=== PATIENT | male | born 1985 | race Caucasian/White ===

== ENCOUNTER 2020-10-01 13:51 | Emergency (ER) | payer OTHER ==
[~2020-10-01] VITALS: Ht 165.1 cm; Wt 73.0 kg
[~2020-10-01 13:51] MED LIST: ASA81BEC PO; DIPHENHIST50 MG PO; PEPCID20 MG PO; PREDNISONE 20 M20 MG PO
[2020-10-01] MEDS ORDERED: NITROSTAT0.4 M1 SUBLING (14:04)
[2020-10-01 14:20] LABS: ABSOLUTE EOSINOPHILS 0.1 thou/uL (0.0-0.7); ABSOLUTE LYMPHOCYTES 1.5 thou/uL (0.8-5.3); ABSOLUTE MONOCYTES 0.4 thou/uL (0.0-1.2); ABSOLUTE NEUTROPHILS 4.3 thou/uL (1.6-8.1); BASOPHILS 0.6 %; EOSINOPHILS 1.3 %; HEMATOCRIT 44.3 % (42.0-52.0); HEMOGLOBIN 14.7 gm/dL (14.0-18.0); LYMPHOCYTES 23.4 %; MCH 30.1 pg (26.0-34.0); MCHC 33.3 g/dL (28.0-37.0); MCV 90.3 fL (80.0-100.0); MONOCYTES 6.4 %; MPV 9.4 fl. (7.2-11.1); NUCLEATED RBCS 0 /100WBC; PLATELET COUNT* 210 thou/uL (150-400); POLYS 68.3 %; RDW-CV 13.1 % (10.5-14.5); WBC 6.3 thou/uL (4.0-11.0)
[2020-10-01 14:33] LABS: CALCIUM 8.7 mg/dL (8.5-10.1); CREATININE 0.8 mg/dL (0.6-1.3); POTASSIUM 4.4 mmol/L (3.5-5.1)
[2020-10-01 14:44] LABS: ALBUMIN 3.7 g/dL (3.4-5.0); TOTAL BILIRUBIN 0.4 mg/dL (<0.1-1.0); TOTAL PROTEIN 7.5 g/dL (6.4-8.2)
[2020-10-01] MEDS ORDERED: ACYCLOVIR 800800 MG PO (15:14)
[2020-10-01 15:25] VITALS: BP 124/65
--- NOTE | 2020-10-02 09:37 | EKG ---
[place] [address] ELECTROCARDIOGRAM REPORT Name: TILA VICK Room: [facility]#: [id number] Admission: 10/01/20 Attend Phys: Discharge: 10/01/20 Date of : 83 Date of Service: 10/01/20 1356 Report #: [id number] THIS REPORT FOR: //name// [facility] ED Test Date: 2020-10-01 Test Time: 13:56:26 Pat Name: TILA VICK Department: Room: Gender: Pediatric Critical Care Nurse: : 1985 Requested By: Fabiana Guallpa Order Number: [id number] MD: Atilio Rajan Measurements Intervals [place] Rate: 105 P: 18 [place]: 142 QRS: 3 QRSD: 83 T: -88 QT: 341 QTc: 451 Interpretive Statements Sinus tachycardia Left atrial enlargement Nonspecific T abnormalities, inferior leads No previous ECG available for comparison Electronically Signed On 10-02-2020 9:37:20 CDT by Atilio Rajan [email or web address] <ELECTRONICALLY SIGNED> By: Atilio Rajan MD, [facility] 10/02/20 0937 1356 1356 Atilio Rajan MD, [facility] /EPI
== END 2020-10-01 15:25 | disposition home or self-care (01) ==
LOC: M.ERS 13:51
PROVIDERS: Nurse Practitioner Family
DX: T15.81XA Foreign body in other and multiple parts of external eye, right eye, initial encounter (principal); R07.89 Other chest pain; R21 Rash and other nonspecific skin eruption; F17.210 Nicotine dependence, cigarettes, uncomplicated; Z88.1 Allergy status to other antibiotic agents; Z88.8 Allergy status to other drugs, medicaments and biological substances; Z86.73 Personal history of transient ischemic attack (TIA), and cerebral infarction without residual deficits; X58.XXXA Exposure to other specified factors, initial encounter; Y93.89 Activity, other specified; Y92.89 Other specified places as the place of occurrence of the external cause; Y99.8 Other external cause status